=== PATIENT | female | born 1990 | race Caucasian/White ===

== ENCOUNTER → 2018-10-10 | Day surgery (SDC) | payer OTHER ==
[~2018-10-10] MED LIST: DICYCLOMINE HCL20 MG PO; FENTANYL CITRATE/PF 100MCG/2 ML INJ ONE; LIDOCAINE HCL 2% LOCAL INJ 5 ML SDV VIAL INJ ONE; MIDAZOLAM HCL 2 MG/2 ML VIAL ONE; PANTOPRAZOLE SO40 MG PO
--- OUTSIDE RECORDS SUMMARY | 2018-10-10 12:54 | XMS REPORT ---
Author [facility] Address Unknown Phone Unavailable Care Team Providers Care Mud Analysis Supervisor Name Role Phone Unavailable Unavailable Payers Payer Name Policy Type Policy Number Effective Date Expiration Date Problems This patient has no known problems. Allergies, Adverse Reactions, Alerts Allergy Name Allergy Type Status Severity Reaction(s) Onset Date Inactive Date Treating Clinician Comments Sulfa (Sulfonamide Antibiotics) DA Active SV 2014-02-25 00:00:00 Medications This patient has no known medications. Results Test Description Test Time Test Comments Text Results Atomic Results Result Comments - US ABDOMEN LTD 2018-09-18 03:12:00 Name: YEIMY NGUYEN [facility] : 1990 Age/S: 28 / F [address] [place] [address] Unit #: [id number] Loc: [place] [address] Phys: Osmin Lock NP Acct: [id number] Dis Date: Status: [facility] ER PHONE #: [phone] Exam Date: 09/18/2018 0236 FAX #: [phone] Reason: SHarp epigastric pain EXAMS: CPT CODE: [id number] US ABDOMEN LTD [id number] EXAM: US, US ABDOMEN LTD: 09/18/2018, 0217 hours HISTORY: SHarp epigastric pain TECHNIQUE: Sonographic evaluation is performed using grayscale, color flow and Doppler imaging as appropriate. COMPARISON: None available. FINDINGS: The liver shows normal parenchymal echogenicity. Liver is normal in size. Visualized portal vein is patent. There is no evidence of dilated intrahepatic biliary ducts. Common bile duct measures 5 mm. The gallbladder is physiologically distended with borderline increased wall thickness at 3.2 mm. There is sludge and stone in the gallbladder. No evidence of pericholecystic fluid collection is seen. The right kidney measures 10.2 cm. There is no evidence of hydronephrosis. The pancreas is obscured by bowel gas. Limited due to excessive bowel gas. IMPRESSION: 1. Sludge and stones in the gallbladder with borderline thickened wall. No pericholecystic fluid. Nuclear medicine HIDA scan may be beneficial. SL; [[id number]] at 0312 Reported and signed by: Andres Garrison M.D. CC: Osmin Lock NP Technologist: Sharon Shell RDMS(A)(OB) Trnscb Date/Time: 09/18/2018 (311) [email or web address] Orig Print D/T: S: 09/18/2018 (314) Probe: PAGE 1 Signed Report URINALYSIS COMPLETE 2018-09-18 02:48:00 UA COLOR (test code=COLU) YELLOW YEL/STRAW UA APPEARANCE (test code=APPU) SL CLOUDY CLEAR UA GLUCOSE DIPSTICK (test code=DGLUU) NEGATIVE NEGATIVE UA BILIRUBIN DIPSTICK (test code=BILU) NEGATIVE NEGATIVE UA KETONE DIPSTICK (test code=KETU) NEGATIVE NEGATIVE UA SPECIFIC GRAVITY (test code=SGU) 1.024 1.005-1.030 UA BLOOD DIPSTICK (test code=YONI) 1+ NEGATIVE UA PH DIPSTICK (test code=DAREN) 5.0 5.0-7.0 UA PROTEIN DIPSTICK (test code=PROU) NEGATIVE NEGATIVE UA UROBILINIOGEN DIPSTICK (test code=URO) 0.2 mg/dL 0.2-1.0 UA NITRITE DIPSTICK (test code=RADHA) NEGATIVE NEGATIVE UA LEUKOCYTE ESTERASE DIPSTICK (test code=LEUU) NEGATIVE NEGATIVE UA WBC (test code=WBCU) 0-3 WBC/HPF 0-3 UA RBC (test code=RBCU) 0-3 RBC/HPF 0-3 UA BACTERIA (test code=BACU) 4+ /HPF NONE SEEN UA SQUAMOUS CELLS (test code=SQU) 0-5 /HPF NONE SEEN UA MUCUS (test code=MUCU) 4+ /LPF NONE SEEN BASIC METABOLIC [id number] 02:39:00* Test Item Value Reference Range Comments SODIUM (test code=NA) 138 mEq/L 134-147 POTASSIUM (test code=K) 3.7 mEq/L 3.4-5.0 SPECIMEN SLIGHTLY HEMOLYZED.Results known to be adversely affected by hemolysis are: Potassium Magnesium LDH Phosphorus CHLORIDE (test code=CL) 106 mEq/L 100-108 CARBON DIOXIDE (test code=CO2) 27 mEq/L 21-33 ANION GAP (test code=GAP) 9 0-20 GLUCOSE (test code=GLU) 111 mg/dL 70-110 BLOOD UREA NITROGEN (test code=BUN) 14 mg/dL 7-18 GLOMERULAR FILTRATION RATE (test code=GFR) 84.8 110-120 Units of measure=ml/min/1.73 m2 CREATININE (test code=CREAT) 0.8 mg/dL 0.6-1.3 CALCIUM (test code=CA) 9.1 mg/dL 8.0-10.5 HEPATIC FUNCTION [id number] 02:39:00* Test Item Value Reference Range Comments TOTAL PROTEIN (test code=PROT) 8.0 g/dL 6.4-8.2 ALBUMIN (test code=ALB) 3.90 g/dL 3.4-5.0 BILIRUBIN TOTAL (test code=BILT) 0.20 mg/dL 0.0-1.0 BILIRUBIN DIRECT (test code=BILD) < 0.10 MG/DL 0.0-0.30 BILIRUBIN INDIRECT (test code=BILIND) 0.10 MG/DL SGOT/AST (test code=AST) 27 IUnit/L 15-37 SGPT/ALT (test code=ALT) 42 IUnit/L 15-65 ALKALINE PHOSPHATASE TOTAL (test code=ALKP) 106 IUnit/L 20-125 [id number] 02:39:00* Test Item Value Reference Range Comments LIPASE (test code=LIP) 168 IUnit/L 73-393 BASIC METABOLIC [id number] 02:34:00* Test Item Value Reference Range Comments SODIUM (test code=NA) 138 mEq/L 134-147 POTASSIUM (test code=K) 3.7 mEq/L 3.4-5.0 SPECIMEN SLIGHTLY HEMOLYZED.Results known to be adversely affected by hemolysis are: Potassium Magnesium LDH Phosphorus CHLORIDE (test code=CL) 106 mEq/L 100-108 CARBON DIOXIDE (test code=CO2) 27 mEq/L 21-33 ANION GAP (test code=GAP) 9 0-20 GLUCOSE (test code=GLU) 111 mg/dL 70-110 BLOOD UREA NITROGEN (test code=BUN) 14 mg/dL 7-18 GLOMERULAR FILTRATION RATE (test code=GFR) 84.8 110-120 Units of measure=ml/min/1.73 m2 CREATININE (test code=CREAT) 0.8 mg/dL 0.6-1.3 CALCIUM (test code=CA) 9.1 mg/dL 8.0-10.5 HEPATIC FUNCTION [id number] 02:34:00* Test Item Value Reference Range Comments TOTAL PROTEIN (test code=PROT) g/dL 6.4-8.2 ALBUMIN (test code=ALB) 3.90 g/dL 3.4-5.0 BILIRUBIN TOTAL (test code=BILT) mg/dL 0.0-1.0 BILIRUBIN DIRECT (test code=BILD) < 0.10 MG/DL 0.0-0.30 SGOT/AST (test code=AST) 27 IUnit/L 15-37 SGPT/ALT (test code=ALT) 42 IUnit/L 15-65 ALKALINE PHOSPHATASE TOTAL (test code=ALKP) IUnit/L 20-125 [id number] 02:34:00* Test Item Value Reference Range Comments LIPASE (test code=LIP) 168 IUnit/L 73-393 UR HCG [id number] 02:19:00* Test Item Value Reference Range Comments UR HCG QUAL (test code=HCGQLU) NEGATIVE NEGATIVE CBC W/AUTO [id number] 02:15:00* Test Item Value Reference Range Comments WHITE BLOOD CELL (test code=WBC) 10.41 x10 3/uL 4.5-11.0 RED BLOOD CELL (test code=RBC) 4.28 x10 6/uL 3.54-5.02 HEMOGLOBIN (test code=HGB) 12.9 g/dL 11.0-15.0 HEMATOCRIT (test code=HCT) 39.0 % 33.0-45.0 MEAN CELL VOLUME (test code=MCV) 91.1 fL 81.0-99.0 MEAN CELL HGB (test code=MCH) 30.1 pg 27.0-33.0 MEAN CELL HGB CONCETRATION (test code=MCHC) 33.1 g/dL 33.0-37.0 RED CELL DISTRIBUTION WIDTH CV (test code=RDW) 13.0 % 11.5-14.5 RED CELL DISTRIBUTION WIDTH SD (test code=RDW-SD) 43.0 fL 37.0-54.0 PLATELET COUNT (test code=PLT) 374 x10 3/uL 150-400 MEAN PLATELET VOLUME (test code=MPV) 10.6 fL 7.0-9.0 NEUTROPHIL % (test code=NT%) 61.8 % 56.0-77.0 IMMATURE GRANULOCYTE % (test code=IG%) 0.3 % 0.0-2.0 LYMPHOCYTE % (test code=LY%) 29.4 % 14.0-32.0 MONOCYTE % (test code=MO%) 5.3 % 4.8-9.0 EOSINOPHIL % (test code=EO%) 2.5 % 0.3-3.7 BASOPHIL % (test code=BA%) 0.7 % 0.0-2.0 NUCLEATED RBC % (test code=NRBC%) 0.0 % 0-0 NEUTROPHIL # (test code=NT#) 6.44 x10 3/uL 2.0-7.6 IMMATURE GRANULOCYTE # (test code=IG#) 0.03 x10 3/uL 0.00-0.03 LYMPHOCYTE # (test code=LY#) 3.06 x10 3/uL 1.0-3.8 MONOCYTE # (test code=MO#) 0.55 x10 3/uL 0.1-0.8 EOSINOPHIL # (test code=EO#) 0.26 x10 3/uL 0.0-0.2 BASOPHIL # (test code=BA#) 0.07 x10 3/uL 0.0-0.2 NUCLEATED RBC # (test code=NRBC#) 0.00 x10 3/uL 0.0-0.1 MANUAL DIFF REQUIRED (test code=MDIFF) NO
[2018-10-10 16:05] VITALS: BP 113/90
--- NOTE | 2018-10-10 16:52 | Operative Report ---
DATE OF PROCEDURE: 10/10/2018 SURGEON: Lorenzo Bonilla MD PROCEDURE: Esophagogastroduodenoscopy with biopsies. INDICATION FOR EGD: Heartburn, indigestion, bloating. MEDICATIONS: The patient was done under MAC, please see anesthesiologist's note. PROCEDURE IN DETAIL: With the patient in left lateral decubitus position, flexible fiberoptic Olympus gastroscope was introduced into the esophagus under direct visualization without any difficulty. There were some patchy erythema noted in distal esophagus. The scope was then advanced with ease into the stomach. Mucosa overlying the antrum and the body revealed some patchy erythema and [id number] edema and biopsies were obtained, sent to stain for H pylori. Hyperplastic-appearing polyps were noted in the body of the stomach and somewhat partially excised with the cold biopsy forceps. Pylorus was of normal contour and shape, it was intubated with ease and the scope was advanced all the way to the second portion of the duodenum. Biopsies were obtained from the second portion and the duodenal bulb to rule out sprue. The scope was then withdrawn back into the stomach and retroflexed and mucosa overlying the fundus and cardia appeared to be within normal limits. The scope was then straightened out, it was subsequently withdrawn. The patient tolerated the procedure well. IMPRESSION: 1. Distal esophagitis. 2. Gastritis, biopsied. Biopsies sent to stain for Helicobacter pylori. 3. Gastric polyps, hyperplastic appearing, some partially excised with the cold biopsy forceps. 4. Rule out sprue. PLAN: Follow up histology. Increase Protonix to 40 mg one p.o. a.c. b.i.d. Lorenzo Bonilla MD [facility] [place] /[id number] cc: Dr. Jack Miranda
== END | disposition home or self-care (01) ==
LOC: OR 12:36
PROVIDERS: ATTEND Internal Medicine Gastroenterology
DX: K29.70 Gastritis, unspecified, without bleeding (principal); K31.7 Polyp of stomach and duodenum; K20.9 Esophagitis, unspecified; R03.0 Elevated blood-pressure reading, without diagnosis of hypertension; Z88.2 Allergy status to sulfonamides; Z68.30 Body mass index [BMI] 30.0-30.9, adult
CPT/HCPCS: 43239; 81025; J2001; J2250; J3010